=== PATIENT | male | born 1980 | race Caucasian/White ===

== ENCOUNTER → 2021-05-15 00:01 | Outpatient (BNVA) | payer SELFPAY | PROVIDERS: Visit Provider Dermatology | DX: Z01.89 Encounter for other specified special examinations (principal) ==

== ENCOUNTER → 2023-03-25 09:18 | Outpatient (BNVA) | payer BC, SELFPAY | PROVIDERS: PCP Nurse Practitioner Family; Visit Provider Nurse Practitioner Family | DX: L20.9 Atopic dermatitis, unspecified (principal); Z13.6 Encounter for screening for cardiovascular disorders; Z00.00 Encounter for general adult medical examination without abnormal findings; R03.0 Elevated blood-pressure reading, without diagnosis of hypertension; B02.9 Zoster without complications | CPT/HCPCS: 80053; 80061; 84443; 85025 ==

== ENCOUNTER 2023-04-04 06:54 | Outpatient (CLI) | payer BC, SELFPAY ==
--- NOTE | 2023-04-04 07:15 | US_ITS ---
WS: [id number] Limited abdomen ultrasound. HISTORY: Abdominal mass. Ultrasound is directed to the anterior abdominal wall at the site of the described mass. There is a l arge amount of shadowing from bowel gas in the intra-abdominal cavity. No soft tissue subcutaneous ma ss. The abdominal wall appears intact. IMPRESSION: No mass identified along the anterior wall at the site of clinical concern. CT abdomen pelvis may pro vide additional information.
== END 2023-04-04 06:55 | disposition home or self-care (01) ==
LOC: RAD 06:54
PROVIDERS: PCP Nurse Practitioner Family; Visit Provider Nurse Practitioner Family
DX: R19.00 Intra-abdominal and pelvic swelling, mass and lump, unspecified site (principal)
CPT/HCPCS: 76705

== ENCOUNTER 2023-04-15 03:49 | Emergency (ER) | payer OTHER, SELFPAY ==
[2023-04-15 03:56] VITALS: BP 162/110; PULSE 110; RESP 18; TEMP 36.8; O2SAT 95; BMI 33.6
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
[2023-04-15] MEDS: ondansetron 2 mg/ML SDV 2 mL 4 MG IVP (04:07)
[2023-04-15 04:14] VITALS: BP 153/115; PULSE 110; RESP 16; O2SAT 96
[2023-04-15] MEDS: iohexol 350 mg/mL 500 mL Btl (per mL) IV (04:18)
[2023-04-15 04:29] LABS: Basophils % 0.3 %; Eosinophils % 0.1 %; Hematocrit 39.6 % (37-53); Lymphocytes # 2.2 10^3/uL (0.8-4.8); Lymphocytes % 18.3 %; Mean Corpuscular HGB Conc 33.6 g/dL (30-55); Mean Corpuscular Hemoglobin 29.8 pg (27-33); Mean Corpuscular Volume 88.8 fl (82-101); Mean Platelet Volume 8.7 fL (7.4-10.4); Monocytes # 0.9 10^3/uL (0.2-0.9); Monocytes % 7.5 %; Neutrophils # 8.66 10^3/uL (1.8-7.7); Neutrophils % 72.8 %; Nucleated Red Blood Cells % 0 %; Platelet Count 343 10^3/cmm (157-399); Red Blood Count 4.46 10^6/uL (3.85-5.65); Red Cell Distribution Width 12.5 % (12.1-15.1); White Blood Count 11.89 10^3/uL (3.29-11.43)
[2023-04-15 04:47] LABS: Alanine Aminotransferase 19 U/L (0-41); Alkaline Phosphatase 82 U/L (40-130); Anion Gap 12.4 (5-19); Aspartate Amino Transferase 12 U/L (0-40); Blood Urea Nitrogen 12 mg/dL (6-20); Calcium 9.2 mg/dL (8.5-10.5); Carbon Dioxide 28 mmol/L (22-29); Chloride 100 mmol/L (98-107); Globulin 2.1 g/dL (1.3-4.6); Glomerular Filtration Rate 104.5 mL/min (90-130); Glucose 90 mg/dL (65-115); Osmolality Calculated 283 mOsm/kg (285-295); Potassium 3.4 mmol/L (3.5-5.1); Sodium 137 mmol/L (136-145); Total Bilirubin 0.4 mg/dL (0.15-1.2); Total Protein 6.1 g/dL (6.6-8.7)
[2023-04-15 04:55] VITALS: PULSE 109; RESP 16; O2SAT 96
== END 2023-04-15 04:57 | disposition home or self-care (01) ==
PROVIDERS: Emergency Provider Emergency Medicine; PCP Nurse Practitioner Family
DX: Z04.1 Encounter for examination and observation following transport accident (principal); S30.1XXA Contusion of abdominal wall, initial encounter; V49.40XA Driver injured in collision with unspecified motor vehicles in traffic accident, initial encounter; Y99.0 Civilian activity done for income or pay
CPT/HCPCS: 74177; 80053; 85025; 96374; 99285; J2405; Q9967

== ENCOUNTER 2023-05-15 10:43 | Outpatient (CLI) | payer OTHER, SELFPAY ==
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
[2023-05-15] MEDS: iohexol 350 mg/mL 500 mL Btl (per mL) PO (11:57)
[2023-05-15] MEDS: iohexol 350 mg/mL 500 mL Btl (per mL) IV (11:58)
== END 2023-05-15 10:44 | disposition home or self-care (01) ==
PROVIDERS: PCP Nurse Practitioner Family; Visit Provider Nurse Practitioner Family
DX: R10.11 Right upper quadrant pain (principal)
CPT/HCPCS: 74177; Q9967